=== PATIENT | male | born 1950 | race Caucasian/White ===

== ENCOUNTER → 2019-09-06 | Outpatient (CLI) | payer MEDICARE ==
[2019-09-06 16:50] LABS: African American GFR (CKD) 88.6 (60.0-200.0); Non-African American GFR(CKD) 76.5 (60.0-200.0)
== END | disposition home or self-care (01) ==
LOC: LABWHC1 07:54
PROVIDERS: ATTEND Urology
DX: N40.1 Benign prostatic hyperplasia with lower urinary tract symptoms (principal)
CPT/HCPCS: 36415; 82565; 84153; 84520